=== PATIENT | female | born 1980 | race Two or more races ===

== ENCOUNTER 2021-06-24 00:20 | Inpatient (IN) | payer OTHER ==
[~2021-06-24] VITALS: Ht 170.2 cm; Wt 95.2 kg
[2021-06-24] MEDS ORDERED: OMEP10SU2 PO (00:35)
[2021-06-24] MEDS ORDERED: LACT10SO62 PO (00:35)
[2021-06-24] MEDS ORDERED: FAMO20 PO (00:35)
[2021-06-24] MEDS ORDERED: ONDANSETRON HCL 4 MG/2 ML VIAL IVP ONE (00:45)
[2021-06-24] MEDS ORDERED: SODIUM CHLORIDE 0.9% 1,000 ML IV ONE (00:45)
[2021-06-24 00:56] LABS: BASOPHILS % (AUTO) 0.9 % (0.0-2.0); EOSINOPHILS % (AUTO) 3.7 % (1.0-6.0); HEMATOCRIT 35.4 % (36-46); HEMOGLOBIN 11.9 g/dL (12.0-16.0); LYMPHOCYTES # (AUTO) 1.8 K/uL (1.0-4.8); MEAN CORPUSCULAR HEMOGLOBIN 29.8 pg (26.0-34.0); MEAN CORPUSCULAR HGB CONC 33.8 G/dL (31.0-37.0); MEAN CORPUSCULAR VOLUME 88 fL (80-100); MONOCYTES # (AUTO) 0.6 K/uL (0.1-1.0); MONOCYTES % (AUTO) 7.6 % (2.0-9.0); NEUTROPHILS # (AUTO) 4.8 K/uL (1.8-7.7); NEUTROPHILS % (AUTO) 63.8 % (40.0-70.0); PLATELET COUNT (AUTO) 388 K/uL (150-450); RED BLOOD CELL COUNT(AUTO) 4.01 MIL/uL (4.00-5.20); RED CELL DISTRIBUTION WIDTH 12.4 % (11.5-14.5)
[2021-06-24] MEDS ORDERED: MORPHINE SULFATE 4 MG/ML SYRINGE IVP PRN (01:00)
[2021-06-24] MEDS ORDERED: 0.9% SODIUM CHLORIDE 10 ML SYRINGE IVP PRN (01:00)
[2021-06-24] MEDS ORDERED: MORPHINE SULFATE 4 MG/ML SYRINGE IVP ONE (01:00)
[2021-06-24] MEDS ORDERED: BARIUM SULFATE 0.1% SUSPENSION 450 ML BOTTLE PO ONE (01:00)
[2021-06-24] MEDS ORDERED: ONDANSETRON HCL 4 MG/2 ML VIAL IVP PRN (01:00)
[2021-06-24 01:07] LABS: ANION GAP 6 mmol/L (8-16); CALCIUM, TOTAL 9.1 mg/dL (8.8-10.5); CARBON DIOXIDE 28 mmol/L (22-29); CHLORIDE 104 mmol/L (98-107); CREATININE 0.89 mg/dL (0.60-1.30); GLOMERULAR FILTR. RATE CALC > 60 mL/min (>60); GLUCOSE,RANDOM 100 mg/dL (70-110); POTASSIUM 3.6 mmol/L (3.5-5.1); SODIUM SERUM 138 mmol/L (136-145); UREA NITROGEN, BLOOD 12 mg/dL (7-18)
[2021-06-24 01:13] LABS: ALANINE AMINOTRANSFERASE 23 U/L (12-78); ALKALINE PHOSPHATASE 110 U/L (46-116); ASPARTATE AMINOTRANSFERASE 17 U/L (15-37); BILIRUBIN,TOTAL 0.7 mg/dL (0.1-1.0); LIPASE 102 U/L (73-393); TOTAL PROTEIN, SERUM 7.9 g/dL (6.4-8.2)
[2021-06-24 01:34] LABS: COVID AG,FIA SOURCE NASOPHARYNGEAL
[2021-06-24] MEDS ORDERED: SODIUM CHLORIDE 0.9% 100 ML ONE (02:04)
[2021-06-24] MEDS ORDERED: IOHEXOL 350 MG/ML 100 ML VIAL ONE (02:04)
[2021-06-24 02:30] LABS: APPEARANCE,URINE CLEAR (CLEAR); BILIRUBIN,URINE NEGATIVE (NEGATIVE); GLUCOSE, URINE (UA) NEGATIVE (NEGATIVE); KETONES,URINE 15 mg/dL (NEGATIVE); LEUKOCYTE ESTERASE ,URINE MODERATE (NEGATIVE); NITRATE,URINE POSITIVE (NEGATIVE); OCCULT BLOOD,URINE TRACE (NEGATIVE); PROTEIN,URINE NEGATIVE (NEGATIVE); UROBILINOGEN,URINE 0.2 mg/dL (<=1.0)
[2021-06-24 02:45] VITALS: BP 125/87
[2021-06-24 03:12] LABS: BACTERIA,URINE Many /HPF (None Seen); WBC,URINE 26-50 /HPF (0-5)
[2021-06-24] MEDS ORDERED: INFLUENZA VIRUS VACCINE QVS 2021-22 (6MO+)/PF 60 MCG/0.5 ML SYRINGE IM. ONE (03:15)
[2021-06-24 07:35] VITALS: BP 100/61
[2021-06-24] MEDS ORDERED: MAGNESIUM HYDROXIDE SUSPENSION 30 ML UDCUP PO PRN (07:45)
[2021-06-24] MEDS: CIPROFLOXACIN HCL 250 MG TABLET PO SCH ×2 (09:31→20:23)
[2021-06-24] MEDS: ACETAMINOPHEN 325 MG TABLET PO PRN ×2 (09:31→17:11)
[2021-06-24] MEDS: FAMOTIDINE 20 MG TABLET PO SCH ×2 (11:36→20:23)
[2021-06-24 16:01] VITALS: BP 112/67
[2021-06-24] MEDS: ONDANSETRON HCL 4 MG/2 ML VIAL IVP PRN (17:13)
[2021-06-24] MEDS ORDERED: OMEP20 PO (18:00)
[2021-06-24] MEDS ORDERED: MORPHINE SULFATE 2 MG/ML SYRINGE IVP PRN (18:00)
[2021-06-24 21:20] VITALS: BP 113/61
[2021-06-25 04:00] VITALS: BP 117/70
[2021-06-25] MEDS: MORPHINE SULFATE 2 MG/ML SYRINGE IVP PRN ×2 (04:56→23:23)
[2021-06-25] MEDS: ONDANSETRON HCL 4 MG/2 ML VIAL IVP PRN ×2 (04:56→20:07)
[2021-06-25 08:23] VITALS: BP 105/63
[2021-06-25] MEDS: FAMOTIDINE 20 MG TABLET PO SCH ×2 (09:49→20:07)
[2021-06-25] MEDS: CIPROFLOXACIN HCL 250 MG TABLET PO SCH (09:49)
[2021-06-25] MEDS ORDERED: SODIUM CHLORIDE 0.9% 250 ML IV ONE (14:12)
[2021-06-25] MEDS: CefTRIAXone 1 GM/DEXTROSE 50 ML IV SCH (14:22)
[2021-06-25] MEDS: MetroNIDAZOLE 500 MG/NACL 100 ML IV SCH ×2 (16:22→23:18)
[2021-06-25 19:55] VITALS: BP 119/73
[2021-06-26 03:35] VITALS: BP 106/70
[2021-06-26] MEDS: ONDANSETRON HCL 4 MG/2 ML VIAL IVP PRN (04:22)
[2021-06-26] MEDS: MetroNIDAZOLE 500 MG/NACL 100 ML IV SCH ×2 (06:27→15:48)
[2021-06-26 06:52] LABS: BASOPHILS % (AUTO) 0.7 % (0.0-2.0); EOSINOPHILS % (AUTO) 10.6 % (1.0-6.0); HEMATOCRIT 33.9 % (36-46); HEMOGLOBIN 11.4 g/dL (12.0-16.0); LYMPHOCYTES # (AUTO) 1.5 K/uL (1.0-4.8); LYMPHOCYTES % (AUTO) 27.1 % (22.0-44.0); MEAN CORPUSCULAR HEMOGLOBIN 30.1 pg (26.0-34.0); MEAN CORPUSCULAR HGB CONC 33.7 G/dL (31.0-37.0); MEAN CORPUSCULAR VOLUME 89 fL (80-100); MONOCYTES # (AUTO) 0.5 K/uL (0.1-1.0); MONOCYTES % (AUTO) 8.2 % (2.0-9.0); NEUTROPHILS % (AUTO) 53.4 % (40.0-70.0); PLATELET COUNT (AUTO) 354 K/uL (150-450); RED BLOOD CELL COUNT(AUTO) 3.79 MIL/uL (4.00-5.20); RED CELL DISTRIBUTION WIDTH 12.3 % (11.5-14.5)
[2021-06-26 07:13] LABS: ALANINE AMINOTRANSFERASE 20 U/L (12-78); ALBUMIN 3.4 g/dL (3.4-5.0); ALKALINE PHOSPHATASE 93 U/L (46-116); ANION GAP 6 mmol/L (8-16); ASPARTATE AMINOTRANSFERASE 17 U/L (15-37); BILIRUBIN,TOTAL 0.6 mg/dL (0.1-1.0); CARBON DIOXIDE 29 mmol/L (22-29); CHLORIDE 105 mmol/L (98-107); CREATININE 0.86 mg/dL (0.60-1.30); GLOMERULAR FILTR. RATE CALC > 60 mL/min (>60); GLUCOSE,RANDOM 89 mg/dL (70-110); POTASSIUM 3.7 mmol/L (3.5-5.1); SODIUM SERUM 140 mmol/L (136-145); TOTAL PROTEIN, SERUM 6.7 g/dL (6.4-8.2); UREA NITROGEN, BLOOD 11 mg/dL (7-18)
[2021-06-26 08:00] VITALS: BP 102/54
[2021-06-26] MEDS: FAMOTIDINE 20 MG TABLET PO SCH ×2 (09:23→21:14)
[2021-06-26] MEDS: CefTRIAXone 1 GM/DEXTROSE 50 ML IV SCH (13:30)
[2021-06-26] MEDS: ONDANSETRON HCL 4 MG TABLET PO PRN (22:34)
[2021-06-26 23:51] VITALS: BP 126/67
[2021-06-26] MEDS: MetroNIDAZOLE 500 MG TABLET PO SCH (23:54)
[2021-06-27 04:00] VITALS: BP 112/50
[2021-06-27 07:52] LABS: EOSINOPHILS % (AUTO) 9.3 % (1.0-6.0); HEMATOCRIT 34.3 % (36-46); HEMOGLOBIN 11.5 g/dL (12.0-16.0); LYMPHOCYTES # (AUTO) 1.4 K/uL (1.0-4.8); LYMPHOCYTES % (AUTO) 26.6 % (22.0-44.0); MEAN CORPUSCULAR HEMOGLOBIN 30.2 pg (26.0-34.0); MEAN CORPUSCULAR HGB CONC 33.6 G/dL (31.0-37.0); MEAN CORPUSCULAR VOLUME 90 fL (80-100); MONOCYTES # (AUTO) 0.4 K/uL (0.1-1.0); MONOCYTES % (AUTO) 8.1 % (2.0-9.0); PLATELET COUNT (AUTO) 374 K/uL (150-450); RED BLOOD CELL COUNT(AUTO) 3.81 MIL/uL (4.00-5.20); RED CELL DISTRIBUTION WIDTH 12.5 % (11.5-14.5)
[2021-06-27] MEDS: ACETAMINOPHEN 325 MG TABLET PO PRN (07:56)
[2021-06-27 08:07] LABS: ANION GAP 6 mmol/L (8-16); CALCIUM, TOTAL 8.7 mg/dL (8.8-10.5); CARBON DIOXIDE 28 mmol/L (22-29); CHLORIDE 106 mmol/L (98-107); CREATININE 0.82 mg/dL (0.60-1.30); GLOMERULAR FILTR. RATE CALC > 60 mL/min (>60); GLUCOSE,RANDOM 97 mg/dL (70-110); POTASSIUM 3.7 mmol/L (3.5-5.1); SODIUM SERUM 140 mmol/L (136-145); UREA NITROGEN, BLOOD 12 mg/dL (7-18)
[2021-06-27 08:10] VITALS: BP 137/92
[2021-06-27] MEDS: MetroNIDAZOLE 500 MG TABLET PO SCH ×3 (08:33→23:15)
[2021-06-27] MEDS: FAMOTIDINE 20 MG TABLET PO SCH (08:34)
[2021-06-27] MEDS: TraMADol HCL 50 MG TABLET PO PRN ×2 (11:54→20:32)
[2021-06-27] MEDS: CefTRIAXone 1 GM/DEXTROSE 50 ML IV SCH (13:38)
[2021-06-27 19:56] VITALS: BP 123/66
[2021-06-27] MEDS: LACTOBACILLUS ACIDOPHILUS/BULGARICUS TABLET PO SCH (20:32)
[2021-06-28] MEDS: ONDANSETRON HCL 4 MG TABLET PO PRN (01:21)
[2021-06-28] MEDS ORDERED: LOPERAMIDE HCL 2 MG CAPSULE PO ONE (02:30)
[2021-06-28 04:30] VITALS: BP 99/57
[2021-06-28 06:15] LABS: BASOPHILS % (AUTO) 1.1 % (0.0-2.0); EOSINOPHILS % (AUTO) 14.1 % (1.0-6.0); HEMATOCRIT 33.8 % (36-46); HEMOGLOBIN 11.4 g/dL (12.0-16.0); LYMPHOCYTES # (AUTO) 1.5 K/uL (1.0-4.8); LYMPHOCYTES % (AUTO) 29.8 % (22.0-44.0); MEAN CORPUSCULAR HEMOGLOBIN 30.5 pg (26.0-34.0); MEAN CORPUSCULAR HGB CONC 33.7 G/dL (31.0-37.0); MEAN CORPUSCULAR VOLUME 90 fL (80-100); MONOCYTES # (AUTO) 0.5 K/uL (0.1-1.0); NEUTROPHILS # (AUTO) 2.4 K/uL (1.8-7.7); PLATELET COUNT (AUTO) 361 K/uL (150-450); RED BLOOD CELL COUNT(AUTO) 3.74 MIL/uL (4.00-5.20); RED CELL DISTRIBUTION WIDTH 12.8 % (11.5-14.5)
[2021-06-28 06:56] LABS: ALANINE AMINOTRANSFERASE 19 U/L (12-78); ALBUMIN 3.2 g/dL (3.4-5.0); ALKALINE PHOSPHATASE 88 U/L (46-116); ANION GAP 6 mmol/L (8-16); ASPARTATE AMINOTRANSFERASE 19 U/L (15-37); BILIRUBIN,TOTAL 0.3 mg/dL (0.1-1.0); CALCIUM, TOTAL 8.8 mg/dL (8.8-10.5); CARBON DIOXIDE 27 mmol/L (22-29); CHLORIDE 106 mmol/L (98-107); CREATININE 0.89 mg/dL (0.60-1.30); GLOMERULAR FILTR. RATE CALC > 60 mL/min (>60); GLUCOSE,RANDOM 95 mg/dL (70-110); POTASSIUM 3.5 mmol/L (3.5-5.1); SODIUM SERUM 139 mmol/L (136-145); TOTAL PROTEIN, SERUM 6.4 g/dL (6.4-8.2); UREA NITROGEN, BLOOD 11 mg/dL (7-18)
[2021-06-28 08:05] VITALS: BP 103/64
[2021-06-28] MEDS: LACTOBACILLUS ACIDOPHILUS/BULGARICUS TABLET PO SCH (08:07)
[2021-06-28] MEDS: MetroNIDAZOLE 500 MG TABLET PO SCH (08:07)
[2021-06-28] MEDS: TraMADol HCL 50 MG TABLET PO PRN (08:07)
[2021-06-28] MEDS ORDERED: PANTOPRAZOLE SODIUM 40 MG DR TABLET PO SCH (09:00)
[2021-06-28] MEDS ORDERED: PANT-31 PO (10:01)
[2021-06-28] MEDS ORDERED: ACET-784 PO (10:02)
[2021-06-28] MEDS ORDERED: MOM30 PO (10:03)
[2021-06-28] MEDS ORDERED: ONDA-104 PO (10:04)
[2021-06-28] MEDS: CefTRIAXone 1 GM/DEXTROSE 50 ML IV SCH (10:13)
== END 2021-06-28 12:17 | DRG 392 ==
LOC: EMS 00:23 → 6S 01:00
PROVIDERS: ADMIT Internal Medicine; ATTEND Internal Medicine
DX: K29.70 Gastritis, unspecified, without bleeding (principal); N39.0 Urinary tract infection, site not specified; K21.9 Gastro-esophageal reflux disease without esophagitis; E66.9 Obesity, unspecified; Z68.32 Body mass index [BMI] 32.0-32.9, adult; F17.200 Nicotine dependence, unspecified, uncomplicated; K02.9 Dental caries, unspecified; K59.00 Constipation, unspecified; Z20.822 Contact with and (suspected) exposure to COVID-19
CPT/HCPCS: 74177; 76705; 76830; 76856; 78226; 80048; 80053; 81001; 83690; 84703; 85025; 87077; 87086; 87186; 99285; A9537; J0696; J2270; J2405; J3490; J7050; Q0162; Q9967